=== PATIENT | male | born 1990 | race Caucasian/White ===

== ENCOUNTER 2019-02-11 13:55 | Emergency (ER) | payer OTHER ==
[~2019-02-11] VITALS: Ht 177.8 cm; Wt 73.0 kg
[2019-02-11 13:59] VITALS: BP 114/61; PULSE 74; RESP 18; Ht 177.8 cm; Wt 73.0 kg
[2019-02-11] MEDS ORDERED: IBUP-1561 PO (14:59)
[2019-02-11] MEDS ORDERED: ACET-141 PO (14:59)
--- NOTE | 2019-02-11 15:08 | ERD ---
ER Documentation Chief Complaint Chief Complaint RIGHT ANKLE PAIN, POSSIBLE "DISLOCATED" PER PT. NO DEFORMITY; CMS INTACT. HPI 28-year-old male with history of recurrent ankle pain presents for right ankle pain x1 day. He states that he was walking planned in his foot and twisted and developed pain. Surgery has 9 out of 10 pain. The pain is described as a dull sensation. There is no pain radiation. Located over the posterior part of the ankle. States that walking makes the pain worse. No previous ankle surgeries. Has had surgery for his left arm his left knee. No other modifying factors noted, no treatment tried at home. ROS All systems reviewed and are negative except as per history of present illness. Medications Home Meds Active Scripts Ibuprofen* (Motrin*) 400 Mg Tab, 400 MG PO Q6H PRN for PAIN AND OR ELEVATED TEMP, #30 TAB Prov:CLEMONSJAY JAY 02/11/19 Acetaminophen* (Acetaminophen*) 500 MG Extra Strength Tablet, 500 MG PO Q4H PRN for PAIN AND OR ELEVATED TEMP, #30 TAB Prov:JAY JAY CLEMONS DO 02/11/19 PMhx/Soc Medical and Surgical Hx: pt denies Medical Hx History of Surgery: Yes (Left arm surgery, left knee surgery) Hx Alcohol Use: Yes (Occasional) Hx Substance Use: No Hx Tobacco Use: No FmHx Family History: No coronary disease Physical Exam Vitals Vital Signs Date Temp Pulse Resp B/P (MAP) Pulse Ox O2 O2 Flow FiO2 Time Delivery Rate 02/11/19 97.8 74 18 114/61 97 13:59 (78) Physical Exam Const: No acute distress Resp: Clear to auscultation bilaterally Cardio: Regular rate and rhythm, no murmurs Skin: No petechiae or rashes Back: No midline or flank tenderness Neur: Awake and alert Psych: Normal Mood and Affect Lower Extremity -right: Skin: No laceration Compartments: Soft Motor: Full active range of motion hip/knee/mildly decreased range of motion of the right ankle due to pain Sensation: Intact to light touch FDWS/MF/LF/P surfaces. Bones: Nontender pelvis/knee/proximal tibia/ malleoli/foot Joints: No effusion or laxity Pulses/Perfusion: 2+ DP, Capillary refill < 2 seconds Procedures/MDM Medical Decision Making: Differential diagnosis includes but not limited to fracture, dislocation, muscle strain, ligamentous sprain, septic joint, osteomyelitis, gout, Patient appeared well on physical exam. There was tenderness over the right ankle mostly over the Achilles heel area Patient was neurovascularly intact Patient denies fever, no recent infection, low suspicion for septic joint or osteomyelitis. ED course: X-ray right ankle 3V Interpreted by me: Bones: No fracture Joints: No dislocation Foreign Body: None Patient likely has an ankle sprain Given the chronic nature of his ankle pain, patient advised to follow with his primary care physician for possible physical therapy. Prescription(s): Patient given prescription for supportive medication(s). Patient advised to follow up with PCP in 1-2 days. Patient advised to return to ED for new or worsening symptoms. Patient stable on discharge from the ED. Disclaimer: Inadvertent spelling and grammatical errors are likely due to [employer]/dictation software use and do not reflect on the overall quality of patient care. Also, please note that the electronic time recorded on this note does not necessarily reflect the actual time of the patient encounter. Departure Diagnosis: Primary Impression: Ankle injury Encounter type: initial encounter Laterality: right Qualified Codes: S99.911A - Unspecified injury of right ankle, initial encounter Condition: Fair Patient Instructions: Treating Ankle Sprains Referrals: [facility] YOU HAVE RECEIVED A MEDICAL SCREENING EXAM AND THE RESULTS INDICATE THAT YOU DO NOT HAVE A CONDITION THAT REQUIRES URGENT TREATMENT IN THE EMERGENCY DEPARTMENT. FURTHER EVALUATION AND TREATMENT OF YOUR CONDITION CAN WAIT UNTIL YOU ARE SEEN IN YOUR DOCTORS OFFICE WITHIN THE NEXT 1-2 DAYS. IT IS YOUR RESPONSIBILITY TO MAKE AN APPOINTMENT FOR FOLOW-UP CARE. IF YOU HAVE A PRIMARY DOCTOR --you should call your primary doctor and schedule an appointment IF YOU DO NOT HAVE A PRIMARY DOCTOR YOU CAN CALL OUR PHYSICIAN REFERRAL HOTLINE AT IF YOU CAN NOT AFFORD TO SEE A PHYSICIAN YOU CAN CHOSE FROM THE FOLLOWING [facility] [address] [facility] [address] [facility] [address] [facility] [address] [facility] [address] [place] [address]. [facility]. [address] Additional Instructions: Call your primary care doctor TOMORROW for an appointment during the next 1-2 days.See the doctor sooner or return here if your condition worsens before your appointment time. Recommend range of motion exercises, avoid heavy lifting recommend warm compressions 3-4 times daily until pain improves JAY JAY CLEMONS DO Feb 11, 2019 15:08
== END 2019-02-11 15:04 | disposition home or self-care (01) ==
LOC: E/R 13:55
DX: S99.911A Unspecified injury of right ankle, initial encounter (principal); X50.1XXA Overexertion from prolonged static or awkward postures, initial encounter; Y92.9 Unspecified place or not applicable
CPT/HCPCS: 73610; Z7502